=== PATIENT | male | born 1970 | race Caucasian/White ===

== ENCOUNTER 2016-11-20 10:25 | Observation (INO) | payer OTHER ==
--- NOTE | ~2016-11-20 | DS ---
Unit #: [id number] #: [id number] Patient: SHANKAR TIJERINA [id number] [address] [place], [place] [address] [id number] I MR#: [id number] NAME: SHANKAR TIJERINA ROOM: 332 Age: 46 Sex: M Admission Date: 11/20/2016 : 1970 Discharge Date: 11/22/2016 Attending Physician: Arian Gomez M.D. Primary Care Physician: Emily Dawkins M.D. DISCHARGE SUMMARY CONSULTANTS 1. Dr. Cleary. 2. Dr. Caleb Chacon. PROCEDURES 1. Stress test which was essentially normal. 2. EGD which showed gastritis. HISTORY OF PRESENTING ILLNESS The patient is a 46-year-old obese man with a past medical history of obesity, diabetes, hypertension, and chronic back pain, who presented to the emergency room with the chief complaint of chest pains. He complained that the pain was epigastric and extended all over the chest. HOSPITAL COURSE Here, a stress test was done which was essentially normal. EGD showed mild gastritis. He had a right upper quadrant ultrasound which showed a stable 3-4 mm polyp in the gallbladder with no evidence of gallstones. He is doing clinically better, and he will be discharged home. We requested him to follow with his primary care. He was taking [id number] ibuprofen for his pain. We requested him to avoid ibuprofen as it can induce gastritis. PHYSICAL EXAMINATION ON DAY OF DISCHARGE VITAL SIGNS: Temperature 98.7, pulse rate 67, respiratory rate 18, and blood pressure 112/55. GENERAL: Patient is alert and oriented x3, lying in the bed in no acute distress. HEENT: Normocephalic and atraumatic. No icterus. Pupils are equal, round, and reactive to light and accommodation. Extraocular muscles intact. NECK: Supple. No JVD. HEART: S1 and S2, regular rate and rhythm. ABDOMEN: Soft and nontender. EXTREMITIES: No edema. Normal pulses. DISCHARGE MEDICATIONS 1. Aspirin 81 mg daily. 2. [place] 10/325 at 1 tab p.o. q.6 p.r.n. for pain. Kindly note, he has his own medications. We are not giving any prescriptions. 3. Protonix 40 mg daily. 4. Glucotrol. 5. Tylenol p.r.n. Unit #: [id number] #: [id number] Patient: SHANKAR TIJERINA 6. Celexa 40 mg daily. 7. Verapamil extended release 120 mg p.o. daily. 8. Pravastatin 40 mg daily. 9. Lisinopril 20 mg p.o. daily. FOLLOWUP He is instructed to follow with his primary care physician in one to two weeks. Total time spent in his care 28 minutes. Dictated by... Diego Lane/gladys TD: 11/22/2016 14:43 JOB #: [id number] DISCHARGE SUMMARY X X DISCHARGE SUMMARY
--- NOTE | ~2016-11-20 | OR ---
Unit #: [id number] #: [id number] Patient: SHANKAR TIJERINA [id number] [address] [address] [id number] I MR#: [id number] NAME: SHANKAR TIJERINA ROOM: [facility] Date of Procedure: 11/21/2016 Admission Date: 11/20/2016 Surgeon: Caleb Chacon M.D. : 1970 Attending Physician: Arain Gomez M.D. Primary Care Physician: Emily Dawkins M.D. OPERATIVE REPORT PROCEDURES PERFORMED Esophagogastroduodenoscopy with biopsy and esophagogastroduodenoscopy with snare polypectomy. INDICATIONS FOR PROCEDURE The patient with atypical chest pain and epigastric pain. MEDICATIONS Monitored anesthesia. POSTOPERATIVE FINDINGS 1. Grade 1 esophageal varices. 2. Small hiatal hernia. 3. Gastritis, biopsies taken. 4. 5 mm gastric polyp in antral area, snared and sent for histopathology. 5. Normal duodenum and distal duodenum. PLAN Continue PPI therapy. Follow up on the pathology report. DESCRIPTION OF PROCEDURE The patient was explained of the procedure, risks, and benefits along with risks and benefits of anesthesia. He was brought to the endoscopy room. Propofol anesthesia was given. Bite block was placed. The scope was passed down the mouth into the esophagus, stomach, duodenum, and distal duodenum. Findings as described. Biopsies taken. Gently, I pulled it out. The gastric polyp was snared with hot snare polypectomy. Gently, the scope was pulled out. He tolerated it well. No major complications were seen. Dictated by... Diego Lakhani/valerie TD: 12/28/2016 01:38 JOB #: [id number] Unit #: [id number] #: [id number] Patient: SHANKAR TIJERINA OPERATIVE REPORT Page 1 of 1 X Caleb Chacon MD X PROCEDURE OPERATIVE NOTE
--- NOTE | ~2016-11-20 | CO ---
Unit #: [id number] #: [id number] Patient: SHANKAR TIJERINA [id number] [address] [place], [place] [address] [id number] I MR#: [id number] NAME: SHANKAR TIJERINA ROOM: 332 Age: 46 Sex: M Admission Date: 11/20/2016 : 1970 Attending Physician: Arian Gomez M.D. Primary Care Physician: Emily Dawkins M.D. Consultation Date: 11/20/2016 CONSULTATION REPORT REASON FOR CONSULTATION Chest pain. HISTORY OF PRESENT ILLNESS This is a 46-year-old male with history of diabetes mellitus, hypertension, hyperlipidemia, degenerative disk disease, has chronic back pain, who went to the emergency room at [facility] with abdominal pain and chest pain. According to the patient, he has been having abdominal pain and abdominal GI symptoms including nausea, epigastric distress for several weeks. He has been to his PCP and he has an appointment to see a GI doctor-Dr. Bhandari in the future in 2 weeks. The patient states last night, about 1:00 a.m., he woke up with abdominal discomfort. He says it is like a burning aching pain that radiated up into the midsternal and over the left anterior chest wall. He was concerned that it could be his heart discomfort, but not ease off. He did get up and take antacid without when he says more waxing and waning. He sometimes gets some diaphoresis with the abdominal pain, but he denies any lower abdominal pain. He has had no diarrhea. No cough, fever, or chills. He denies any emesis except as mentioned does have some nausea at times. He denies any diarrhea. He denies any hematemesis or melena. He has had normal stools. Normal bowel movements. The patient has never been seen by a [employer] consultant in the past. In the emergency room at [facility], initial cardiac enzymes are negative. His EKG did not show anything acute. His chest x-ray did not show anything acute. His CBC was normal. The patient was given sublingual nitroglycerin, and did help ease off the pain in his chest so with that concerning his multiple risk factors and having chest pain, he was transferred to [facility]'s and Cardiology have been asked to assist with evaluation and management. PAST MEDICAL HISTORY 1. Diabetes mellitus, type 2. 2. Hypertension. 3. Hyperlipidemia. 4. Anxiety. 5. Family history, his father of congestive heart failure. He had a pacemaker at the age of 69, but he was a smoker. 6. Degenerative disk disease. Chronic back pain. 7. No stress or cardiac cath in the past. 8. Nonsmoker. Unit #: [id number] #: [id number] Patient: SHANKAR TIJERINA PAST SURGICAL HISTORY Hemorrhoidectomy few years ago. HOME MEDICATIONS [place] 10/325 one tablet p.o. every 6 hours p.r.n., pravastatin 40 mg p.o. at bedtime, Celexa 40 mg p.o. daily, lisinopril 20 mg p.o. daily, verapamil 120 mg p.o. daily, Glucotrol dose unavailable 1 tablet daily. ALLERGIES No known drug allergies. SOCIAL HISTORY The patient lives with his sister. He is trying to get disability for his chronic back pain. He has been a lifelong nonsmoker. No alcohol or illicit drug abuse. FAMILY HISTORY His father within the last few months from congestive heart failure and had a permanent pacemaker. He at 68. He was a heavy smoker. His mother at the age of 67 from cancer. His siblings are in generally well health. REVIEW OF SYSTEMS See details in HPI. PHYSICAL EXAMINATION GENERAL: Mr. Tijerina is a 46-year-old male, in no acute respiratory distress. He is awake, alert, and oriented. VITAL SIGNS: Blood pressure is 135/80, heart rate 66, respirations 18, temperature 98.0, O2 saturations 98% on room air. NECK: Trachea midline. No thyromegaly or lymphadenopathy. Normal carotid upstrokes. No jugular venous distention. HEART: S1, S2. Regular rate and rhythm. No clicks, murmurs, or rubs. LUNGS: Bilaterally clear throughout. No wheezes, rales, or rhonchi. ABDOMEN: Obese, soft, tender with palpating midepigastric and especially in the right upper quadrant. Positive bowel sounds present. EXTREMITIES: Pedal pulses are palpable. No pedal edema. DIAGNOSTIC STUDIES LABORATORY RESULTS: These are labs taken from [facility]. Glucose is 186, BUN 12, creatinine 0.84, sodium 138, potassium 4.0, chloride 101, CO2 of 30, calcium is 9.0, total protein 3.0, albumin 4.3, bilirubin total 0.7, alkaline phosphatase is 85, AST 33, ALT 39, lipase is 27. WBCs 7.0, hemoglobin 15.2, hematocrit 45.3, and platelets 215. D-dimer less than 200. Troponin less than 0.01. IMAGING STUDIES: Chest x-ray showed mild cardiomegaly, otherwise negative. CARDIOVASCULAR STUDIES: EKG shows normal sinus rhythm with ventricular rate of 63 beats per minute, questionable Q-wave in inferior leads, age undetermined, slow R-wave progression, left atrial abnormality. IMPRESSION 1. Abdominal pain, questionable etiology. 2. Chest pain, questionable etiology. 3. Diabetes mellitus type 2. 4. Hypertension. Unit #: [id number] #: [id number] Patient: SHANKAR TIJERINA 5. Hyperlipidemia. 6. Anxiety. 7. Nonsmoker. PLAN 1. Cardiology consult to assist with evaluation and management. 2. Continue to monitor cardiac enzymes. If they remain negative, we will proceed with a Lexiscan Cardiolite stress test tomorrow morning to further evaluate for ischemic heart disease. 3. We will have Dr. Chacon, GI consult to evaluate the patient's abdominal symptoms and abdominal pain. We will keep the patient n.p.o. after midnight since he may also have some type of scope possibly an EGD. 4. On exam, there were no signs or symptoms of acute congestive heart failure. We will obtain a 2D echo to evaluate LV function and valves. 5. Per baseline. 6. Obtain a fasting lipid profile and TSH and evaluate. 7. The patient's heart rate and blood pressure currently stable. Continue on lisinopril and verapamil at this point. Also continue on Lovenox 40 mg subcutaneous daily for DVT prophylaxis and also he is on Protonix 40 mg p.o. daily. 8. Further recommendations pending his further testing. Thank you very much for allowing to assist in the care. Dictated by... Jasmin Casillas/valerie TD: 11/21/2016 03:15 JOB #: [id number] CONSULTATION REPORT X Mela Smart APRN CONSULTATION REPORT
--- NOTE | ~2016-11-20 | EKG ---
PATIENT: SHANKAR TIJERINA UNIT #: [id number] Ventricular Rate: 59 BPM Atrial Rate: 59 BPM P-R Interval: 180 ms QRS Duration: 86 ms Q-T Interval: 440 ms QTC Calculation(Bezet): 435 ms P [place]: 9 degrees Calculated R [place]: -8 degrees Calculated T [place]: -13 degrees Diagnosis Line: Sinus bradycardia Diagnosis Line: Inferior infarct , age undetermined Diagnosis Line: Abnormal ECG Diagnosis Line: No previous ECGs available Diagnosis Line: Confirmed by IRVIN LARRY MD ([id number]) on 11/21/2016 Diagnosis Line: 7:20:00 AM INTERPRETING MD: LARON DUPONT
--- NOTE | ~2016-11-20 | ST ---
Unit #: [id number] #: [id number] Patient: SHANKAR TIJERINA [id number] [facility]. [place], [place] [address] [id number] I MR#: [id number] NAME: SHANKAR TIJERINA : 1970 SEX: M STUDY DATE/TIME: 11/21/2016 UNIT: C3A PCU ROOM: [facility] STUDY DESCRIPTION: Lexiscan stress test Attending Physician: Arian Gomez M.D. Primary Care Physician: Emily Dawkins M.D. CARDIOLOGY REPORT PROCEDURE PERFORMED EKG portion of a Lexiscan Cardiolite stress test. REASON FOR TEST Chest pain. PROCEDURE Baseline EKG shows normal sinus rhythm, rate of 64 beats per minute with some T wave inversions evident in lead III and possibly in AVF. Lead AVF is flattened T waves. A total of 0.4 mg of Lexiscan was injected per protocol, followed by Cardiolite. The patient's symptoms included some abdominal pain during the procedure. There were no obvious ST changes or arrhythmias noted. The test was stopped due to protocol completion. IMPRESSION 1. This was a negative test. 2. No obvious ST segment changes. 3. Only symptoms included some abdominal pain. 4. No arrhythmias noted. 5. Please correlate with Cardiolite imaging. Dictated by... Soco Young APRN for Diego Umaña TD: 11/21/2016 10:16 JOB #: [id number] CARDIOLOGY REPORT X CARDIOLOGY REPORT
--- NOTE | ~2016-11-20 | CO ---
Unit #: [id number] #: [id number] Patient: SHANKAR TIJERINA [id number] [address] [place], [place] [address] [id number] I MR#: [id number] NAME: SHANKAR TIJERINA ROOM: 332 Age: 46 Sex: M Admission Date: 11/20/2016 : 1970 Attending Physician: Arian Gomez M.D. Primary Care Physician: Emily Dawkins M.D. CONSULTATION REPORT REASON FOR CONSULTATION Atypical chest pain. HISTORY OF PRESENTING ILLNESS The patient reports a several-week history of intermittent epigastric and atypical chest pain, which was relieved by Tums and then yesterday morning, he began to have similar pain, which was not relieved with Tums and was persistent. The patient eventually came to the emergency department and has subsequently been admitted for further evaluation. PAST MEDICAL HISTORY Depression, migraine, hypertension, type 2 diabetes, and back pain. PAST SURGICAL HISTORY Hemorrhoidectomy. HOME MEDICATIONS [place], pravastatin, citalopram, glipizide, lisinopril, verapamil, baclofen, hydroxyzine. ALLERGIES None known. SOCIAL HISTORY The patient denies tobacco, alcohol, or illicit drugs. FAMILY HISTORY Notable for cardiac disease. REVIEW OF SYSTEMS A complete 10-point review of systems was completed and negative except as mentioned in the HPI. PHYSICAL EXAMINATION GENERAL: The patient is a pleasant 46-year-old male, currently in no acute distress. VITAL SIGNS: Temperature is 97.5, pulse is 67, respirations 20, blood pressure is 118/58. HEENT: PERRLA. NECK: Supple. CARDIAC: S1 and S2. LUNGS: Clear to auscultation. ABDOMEN: Soft, rounded, nontender, and nondistended. Positive bowel sounds. Unit #: [id number] #: [id number] Patient: SHANKAR TIJERINA NEUROLOGIC: The patient is alert, awake, and oriented x3. DIAGNOSTIC STUDIES LABORATORY RESULTS: Chemistry is negative. CBC is also negative. ASSESSMENT AND PLAN 1. Epigastric pain with atypical chest pain. We will plan esophagogastroduodenoscopy for the morning. Continue PPI therapy. Further recommendations to follow the scope. 2. Diabetes. 3. Hypertension. Thank you for this interesting consult. We will continue to follow along. Dictated by... Amado SuPMeeRMeeNMee for Diego Lakhani/valerie TD: 11/22/2016 03:39 JOB #: [id number] CONSULTATION REPORT X X CONSULTATION REPORT
--- NOTE | ~2016-11-20 | TH ---
Unit #: [id number] #: [id number] Patient: SHANKAR TIJERINA [id number] [address] [address] [id number] I MR#: [id number] NAME: SHANKAR TIJERINA : 1970 SEX: M STUDY DATE/TIME: 11/21/2016 UNIT: C3A PCU ROOM: [facility] STUDY DESCRIPTION: Lexiscan stress test - Nuclear Attending Physician: Arian Gomez M.D. Primary Care Physician: Emily Dawkins M.D. CARDIOLOGY REPORT PROCEDURE PERFORMED Lexiscan Cardiolite stress test - Nuclear portion. PROCEDURE Using technetium 99m-labeled Cardiolite, rest and stress SPECT images were obtained. Multiple SPECT images were obtained in various views, including horizontal and vertical long axis and short axis views of the left ventricle. Images were obtained by gated SPECT method. The patient was administered 11.65 mCi of Cardiolite at rest. The patient was administered 36 mCi of Cardiolite after Lexiscan infusion was completed. On the stress images, there is normal perfusion noted. The rest images show normal perfusion. Comparing the rest and stress images, there is no stress-induced ischemia noted. The left ventricular ejection fraction is calculated to be 54%. There is no focal wall motion abnormality seen. CONCLUSION 1. No stress-induced ischemia noted. 2. The left ventricular ejection fraction is calculated to be 54%. 3. There is no focal wall motion abnormality seen. 4. Normal Lexiscan Cardiolite stress test. 5. Technically limited study due to the patient's body habitus. Clinical correlation is requested. Dictated by... Diego Umaña/maile TD: 11/21/2016 12:05 JOB #: [id number] CARDIOLOGY REPORT X Paola Meza MD <ELECTRONICALLY SIGNED> 04/06/17 1429 CARDIOLOGY REPORT
--- NOTE | ~2016-11-20 | US6 ---
[facility] A Service of [facility] RADIOLOGY TEXT RESULTS PATIENT: SHANKAR TIJERINA LOCATION: A : [birth year] UNIT #: [id number] AGE: [address]: Arian Gomez MD SEX: M ORDER DR: [id number] [facility]. [place], [place] [address] [id number] I MR#: [id number] Acc #: [id number] NAME: SHANKAR TIJERINA : 1970 SEX: M STUDY DATE/TIME: 11/21/2016 16:25 UNIT: C3A PCU ROOM: [facility] STUDY DESCRIPTION: US Abdominal Limited Attending Physician: Arian Gomez M.D. Ordering Physician: Caleb Chacon M.D. Primary Care Physician: Emily Dawkins M.D. MEDICAL IMAGING REPORT This report is preliminary unless electronic signature is present EXAM Right upper quadrant ultrasound INDICATIONS Abdominal pain for 3 months, pain apparently worsened 3 days ago. Patient had endoscopy today. TECHNIQUE [place]-scale and color Doppler sonographic images were obtained through the right upper quadrant. FINDINGS Pancreas is not well seen due to overlying bowel gas. I do think the patient has increased liver echotexture likely reflecting some hepatic steatosis. No intra- or extrahepatic biliary dilatation is seen and no focal hepatic lesions are identified. There is no gallbladder wall thickening or pericholecystic fluid. No stones or sludge are identified within the gallbladder although the patient is suspected to have a polyp within the gallbladder measuring about 4 x 3 x 4 mm. Main portal vein is patent with hepatopetal flow. IMPRESSION 1. Diffuse hepatic steatosis. 2. Pancreas is not well seen due to overlying bowel gas. 3. Stable gallbladder polyp measuring about 3-4 mm in size, no stones or sludge are identified and there is no gallbladder wall thickening. Dictated by... Lori Hampton M.D. [facility] A Service of [facility] RADIOLOGY TEXT RESULTS PATIENT: SHANKAR TIJERINA LOCATION: [facility] : [birth year] UNIT #: [id number] AGE: [address]: Arian Gomez MD SEX: M ORDER DR: THIS IS AN ELECTRONICALLY VERIFIED REPORT Lori Hampton M.D. at 11/22/2016 4:19 PM AFF/psc TD: 11/21/2016 23:44 JOB #: [id number] MEDICAL IMAGING REPORT COPY
--- NOTE | ~2016-11-20 | HP ---
Unit #: [id number] #: [id number] Patient: SHANKAR TIJERINA [id number] [facility] [address] [facility]. [place], [place] [address] [id number] I MR#: [id number] NAME: SHANKAR TIJERINA ROOM: 332 Age: 46 Sex: M Admission Date: 11/20/2016 : 1970 Attending Physician: Ko Stanley M.D. Primary Care Physician: Emily Dawkins M.D. HISTORY AND PHYSICAL CHIEF COMPLAINT Chest pain. HISTORY OF PRESENT ILLNESS The patient is a 46-year-old male with history of obesity, diabetes mellitus, high blood pressure, and chronic back pain brought to the emergency room at [facility] complaining of chest pain. The patient stated the pain started around 2 a.m. this morning while he was watching the television. The pain initially started at the epigastric region and described it as throbbing in nature, constant, and the pain radiated to the left upper chest. The pain in the upper chest is pleuritic and is tender to touch. The patient also complains of feeling nauseated and diaphoresis at that time. The patient stated the pain in the upper chest is relieved with sublingual nitroglycerin in the emergency room. The pain in the epigastric region is still persistent and is constant and is 8 out of 10 in severity. The patient stated he had a strong family history of heart disease with father dying recently from the heart disease. The patient denies any fever, cough, palpitations. The patient is transferred to [facility] for further workup. PAST MEDICAL HISTORY 1. History of depression. 2. Migraine. 3. Hypertension. 4. Diabetes type 2. 5. Back pain. PAST SURGICAL HISTORY Hemorrhoidectomy. MEDICATIONS 1. [place]. 2. Pravastatin. 3. Citalopram. 4. Glipizide. 5. Lisinopril. 6. Verapamil. 7. Baclofen. 8. Hydroxyzine. The patient received aspirin 324 in the emergency room and nitroglycerin sublingual in the emergency room. Unit #: [id number] #: [id number] Patient: SHANKAR TIJERINA ALLERGIES No known drug allergies. SOCIAL HISTORY Denies cigarettes, alcohol and illicit drug abuse. FAMILY HISTORY Positive for cardiac disease. REVIEW OF SYSTEMS A 14-point review of systems performed and only pertinent positive findings are described above, remaining are negative. PHYSICAL EXAMINATION VITAL SIGNS: Pulse 65, respiratory rate 18, blood pressure 119/75, saturating 100% at room air. GENERAL: Patient is lying on the bed not in acute distress. HEENT: Atraumatic, normocephalic. Pupils equal, round, and reactive to light and accommodation. Extraocular movements are intact. Moist mucous membrane. NECK: Supple. No JVD. LUNGS: Decreased air entry at the bases. HEART: Regular rate and rhythm. CHEST: Tender to touch. ABDOMEN: Soft, positive bowel sounds. Epigastric tenderness. EXTREMITIES: No cyanosis, no clubbing. NEUROLOGIC: Alert, awake, oriented. No gross focal motor deficit. DIAGNOSTIC STUDIES LABORATORY: From outside hospital, troponin less than 0.01. Sodium 138, potassium 4, chloride 101, bicarb 30, anion gap 7, glucose 196, BUN 12, creatinine 0.8, protein 8, albumin 4.3, AST 33, ALT 39. Lipase 27. WBC 7, hemoglobin 15.2, platelets 215. CARDIOVASCULAR: EKG shows T-wave inversions in the inferior leads. This is similar to the old EKG from 2014. No acute ST-T changes. ASSESSMENT AND PLAN 1. Chest pain, likely pleuritic. 2. Epigastric pain. 3. Hypertension. 4. Diabetes mellitus type 2. PLAN 1. Admit patient to observation with telemetry. 2. Rule out ischemia with troponins. 3. Will start on protonix and will have Cardiology to consult for a stress echo. 4. Repeat labs again. 5. Further recommendations will follow. Dictated by Ko Stanley M.D. Unit #: [id number] #: [id number] Patient: SHANKAR TIJERINA SCOTT/ilana TD: 11/20/2016 17:02 JOB #: [id number] HISTORY AND PHYSICAL X X HISTORY AND PHYSICAL
[~2016-11-20 10:25] MED LIST: CYMBALTA PO; KLONOPIN1 MG PO; LORTAB 7.5-5001 TAB PO; MUSCLE RELAXER PO; PAXIL10 MG PO; ROBAXIN 750750 M1 PO; VERAPAMIL ER240 MG PO; ZANTAC150 MG PO
[2016-11-20] MEDS ORDERED: PRAVASTATIN SOD40 MG PO (13:55)
[2016-11-20] MEDS ORDERED: NORCO 10/3251 TAB PO (13:55)
[2016-11-20] MEDS ORDERED: LISINOPRIL20 MG PO (13:56)
[2016-11-20] MEDS ORDERED: CITALOPRAM HBR40 MG PO (13:56)
[2016-11-20] MEDS ORDERED: GLUCOTROL (13:57)
[2016-11-20] MEDS ORDERED: VERAPAMIL ER120 M1 PO (13:57)
[2016-11-21 06:20] LABS: MEAN CELL VOLUME 88.3 FL (83-96); MEAN CORPUSCULAR HEMOGLOBIN 29.4 PG (28-34); MEAN CORPUSCULAR HGB CONC 33.3 g/dL (30-36); MEAN PLATELET VOLUME 9.9 FL (6.5-11.5); RED BLOOD COUNT 4.76 X10e (3.90-5.60); RED CELL DISTRIBUTION WIDTH 14.1 % (11.0-15.5); WHITE BLOOD COUNT 8.4 X10e3 (4.0-10.5)
[2016-11-21 07:51] LABS: BLOOD UREA NITROGEN 11 mg/dL (9-23); BUN/CREATININE RATIO 15.71; CALCIUM SERUM 8.9 mg/dL (8.4-10.2); CARBON DIOXIDE 28 mmol/L (22-31); CHLORIDE 102 mmol/L (100-111); CREATININE SERUM 0.7 mg/dL (0.6-1.4); GLOM FILT RATE Estimated ABOVE60 mL/min (>60); GLUCOSE FASTING 160 mg/dL (70-110); POTASSIUM 4.1 mmol/L (3.5-5.1); SODIUM 143 mmol/L (135-145)
[2016-11-21 07:55] LABS: CHOLESTEROL 179 mg/dL (0-200); HDL CHOLESTEROL 37 mg/dL (29-75); LDL CHOLESTEROL 125 mg/dL (-130); LDL/HDL RATIO 3 RATIO (0-4); TRIGLYCERIDES 87 mg/dL (10-160)
[2016-11-22 05:49] LABS: HEMATOCRIT 44.5 % (38.0-50.0); HEMOGLOBIN 14.6 gm/dL (13.0-16.0); MEAN CELL VOLUME 88.5 FL (83-96); MEAN CORPUSCULAR HGB CONC 32.8 g/dL (30-36); MEAN PLATELET VOLUME 9.7 FL (6.5-11.5); RED BLOOD COUNT 5.03 X10e (3.90-5.60); WHITE BLOOD COUNT 8.5 X10e3 (4.0-10.5)
[2016-11-22 06:17] LABS: ALBUMIN SERUM 4.1 g/dL (3.5-5.0); ALKALINE PHOSPHATASE 78 U/L (32-92); ALT (SGPT) 33 U/L (10-40); AST (SGOT) 31 U/L (10-42); BILIRUBIN,TOTAL 1.1 mg/dL (0.2-2.0); BLOOD UREA NITROGEN 12 mg/dL (9-23); CALCIUM SERUM 8.9 mg/dL (8.4-10.2); CARBON DIOXIDE 29 mmol/L (22-31); CHLORIDE 100 mmol/L (100-111); CREATININE SERUM 0.6 mg/dL (0.6-1.4); GLOM FILT RATE Estimated ABOVE60 mL/min (>60); GLUCOSE FASTING 129 mg/dL (70-110); PROTEIN TOTAL SERUM 7.5 g/dL (6.0-8.3); SODIUM 139 mmol/L (135-145)
[2016-11-22] MEDS ORDERED: ASPIRIN81 M2 PO (12:55)
[2016-11-22] MEDS ORDERED: PROTONIX PO (12:56)
[2016-11-22] MEDS ORDERED: PAIN RELIEF325 M1 PO (12:57)
[2016-11-26 14:55] LABS: HA AB IGM (HEPPAN) Nonreactive (Nonreactive); HB CORE AB IGM (HEPPAN) Nonreactive (Nonreactive); HB S AG (HEPPAN) Nonreactive (Nonreactive); HEP C AB (HEPPAN) Nonreactive (Nonreactive); HEP C AB SIGNAL TO CUTOFF 0.03 ratio (<1.00)
== END 2016-11-22 14:03 | disposition home or self-care (01) ==
LOC: CEDOF 10:25 → C3A PCU 12:36
PROVIDERS: Internal Medicine; Internal Medicine Cardiovascular Disease
DX: R07.89 Other chest pain (principal); R10.13 Epigastric pain; I85.00 Esophageal varices without bleeding; K44.9 Diaphragmatic hernia without obstruction or gangrene; K29.50 Unspecified chronic gastritis without bleeding; K31.7 Polyp of stomach and duodenum; E11.9 Type 2 diabetes mellitus without complications; I10 Essential (primary) hypertension; E78.5 Hyperlipidemia, unspecified; F41.9 Anxiety disorder, unspecified; Z82.49 Family history of ischemic heart disease and other diseases of the circulatory system; Z80.9 Family history of malignant neoplasm, unspecified; I08.1 Rheumatic disorders of both mitral and tricuspid valves; E66.9 Obesity, unspecified; K82.4 Cholesterolosis of gallbladder
CPT/HCPCS: 76705; 78452; 80048; 80053; 80061; 80074; 82947; 84443; 84484; 85027; 88305; 88312; 93005; 93017; 93306; 94760; 96372; 96374; 96375; 96376; A9500; G0378; J1650; J1815; J2250; J2270; J2405; J2785